=== PATIENT | male | born 1965 | race Caucasian/White ===

== ENCOUNTER → 2021-05-26 09:27 | Outpatient (CLI) | payer MEDICARE, MEDICAID, SELFPAY ==
[2021-05-26 20:34] LABS: COVID19 - ORCAS (NP or Nasal) Negative (Negative)
== END ==
PROVIDERS: PCP Physician Assistant; Visit Provider Physician Assistant
DX: Z20.822 Contact with and (suspected) exposure to COVID-19 (principal)
CPT/HCPCS: C9803; U0003

== ENCOUNTER → 2023-05-10 11:19 | Outpatient (CLI) | payer MEDICARE, MEDICAID, SELFPAY ==
--- NOTE | 2023-05-10 11:24 | DI.MRI.S_ITS ---
PROCEDURE: MR PELVIC PROSTATE PROTOCOL INDICATIONS: Elevated and rising PSA TECHNIQUE: Coronal HASTE, axial T1 FSE with fat saturation, 3-plane nonbreath-hold T2 FSE. After the administration of contrast, dynamic axial, delayed axial and coronal VIBE or 2-D FLASH with fat saturation through the pelvis. Optional diffusion weighted imaging and ADC may be performed. COMPARISON: None. FINDINGS: Image quality: Diffusion weighted and dynamic contrast enhanced images are diagnostic. Prostate: 4.3 x 5.3 x 4.8 cm. Estimated volume is 57 cc. Transitional zone heterogenous nodules are present, either well encapsulated or mostly encapsulated, compatible with PI-RADS 1 or 2 likely BPH nodules. There is diffuse homogeneous low signal on T2 weighted images of the peripheral zone, without mass forming lesion identified. PI-RADS 2. Mild enhancement is also seen throughout the peripheral zone on early images. Genitourinary system: Mildly trabeculated bladder without hydronephrosis, often due to chronic obstruction. Bowel and peritoneum: Colonic diverticula. No bowel obstruction or pathologic ascites. Nodes and vessels: No aneurysmal vessel. No pathologic lymph nodes by size criteria. Soft tissues: Right greater than left inguinal hernias. Right inguinal hernia variably contains a loop of ileum, without obstruction. Bones: No acute or suspicious osseous finding. IMPRESSION: Suspected acute or acute on chronic prostatitis changes, without a mass forming lesion identified in the peripheral zone. BPH changes suspected in the transitional zone. No PI-RADS 3, 4 or 5 finding. Consider PSA surveillance and repeat imaging if persistently elevated. Bowel containing right inguinal hernia. Dictated by: Alex Wolf M.D. on 05/10/2023 at 14:54 Approved by: Alex Wolf M.D. on 05/10/2023 at 15:00
== END ==
PROVIDERS: PCP Family Medicine; Referring Provider Urology; Visit Provider Urology
DX: N32.89 Other specified disorders of bladder (principal); R97.20 Elevated prostate specific antigen [PSA]; K57.90 Diverticulosis of intestine, part unspecified, without perforation or abscess without bleeding; K40.20 Bilateral inguinal hernia, without obstruction or gangrene, not specified as recurrent
CPT/HCPCS: 72197; 99213; A9579

== ENCOUNTER 2023-08-24 09:43 | Day surgery (SDC) | payer MEDICARE, MEDICAID, SELFPAY ==
[2023-08-16 15:20] VITALS: BMI 27.6
[2023-08-24 10:11] VITALS: BP 150/86; PULSE 57; RESP 16; TEMP 36.5; O2SAT 98; BMI 27.8
[2023-08-24] MEDS: LACTATED RINGERS 1,000 ML 42 ML IV (10:20)
--- NOTE | 2023-08-24 10:44 | SUR.OPER ---
Supine on padded OR bed, head on pillow, arms secured on padded arm boards at <90 degrees abduction, legs uncrossed, safety belt at thigh, tape over blanket over lower legs.
--- NOTE | 2023-08-24 10:46 | P.HP_ITS ---
History of Present Illness History of Present Illness Date Patient Seen: 08/24/23 Time Patient Seen: 10:46 Chief complaint: Open [facility] Narrative: Oscar is a 50-year-old man with autism with a right inguinal hernia that he is had for several years. See office note from May for details. FORMERLY [facility], [facility] Medical History (Updated 08/16/23 @ 15:23 by Teetee Denis RN) Autism Asymptomatic microscopic hematuria Right inguinal hernia Rising PSA level Elevated PSA History of Noe's esophagus History of high blood pressure Hx of gastroesophageal reflux (GERD) Surgical History Hx of circumcision Family History Grandmother Cancer Grandfather Hearing impairment Social History marital status: unmarried,single number of children: 0 household members: family Smoking Status: Never smoker alcohol intake: never caffeine: No Type(s) of exercise: other Meds Home Medications and Allergies Home Medications Medication Instructions Recorded Confirmed Type buspirone 15 mg tablet 15 mg PO BID 04/29/23 08/24/23 History [id number] 333 mg-133 tab PO 04/29/23 05/10/23 History mg-8.3 mg tablet cholecalciferol (vitamin D3) 2,000 units PO DAILY 04/29/23 08/24/23 History fluvoxamine 100 mg tablet 100 mg PO BEDTIME 04/29/23 08/24/23 History multivit with min-folic acid PO 04/29/23 05/10/23 History [Centrum Adults] omeprazole 20 mg capsule,delayed 20 mg PO BID 04/29/23 08/24/23 History release propranolol 20 mg tablet 15 mg PO BID 04/29/23 08/24/23 History Allergies Allergy/AdvReac Type Severity Reaction Status Date / Time lactose Allergy Unknown Verified 08/24/23 10:21 Exam Vital Signs (past 8 hours): - 08/24/23 10:11 Temperature 97.7 F Pulse Rate 57 L Respiratory Rate 16 Blood Pressure 150/86 H Pulse Oximetry 98 Oxygen Delivery Method Room Air Oxygen Flow Rate 0 Oxygen Delivery Method Room Air Oxygen Flow Rate 0 Narrative Exam Narrative: Right inguinal hernia Assessment & Plan Assessment and plan (1) Right inguinal hernia: Status: Acute Plan We reviewed the risks and benefits of open right inguinal hernia repair and he would like to proceed.
[2023-08-24] MEDS: CEFAZOLIN 2 GM/100 ML PREMIX 100 ML IV (11:10)
[2023-08-24] MEDS: BUPIVACAINE 0.5% (PF) 30 ML, EPINEPHrine 0.15 MG INJ (11:21)
--- NOTE | 2023-08-24 12:29 | P.OP_ITS ---
Operative Date/Time/Diagnoses Date of procedure: 08/24/23 Time of procedure: 12:30 Pre-op diagnosis: Right inguinal hernia Post-op diagnosis: same Procedure & Clinicians Procedure: Open right inguinal hernia repair with mesh Same procedure as scheduled: Yes Surgeon: Marcelo De Los Santos Operative Notes Procedure in detail: Preoperative antibiotic was administered. The patient was brought to the operating room and placed on the table in supine position general anesthesia was induced. The right groin was prepped and draped in the normal fashion and a time-out was performed. Roughly 10 mL of local anesthetic were injected into the skin and subcutaneous adipose tissue over the right groin. A 7 cm incision was made over the right inguinal canal. Dissection was carried down through the subcutaneous adipose tissue. We exposed the external oblique aponeurosis in the direction of the fibers. Additional local was injected deep to the aponeurosis. A 15 blade scalpel was used to cesario the external oblique aponeurosis. Metzenbaum scissors were used to carefully open the aponeurosis in the direction of the fibers taking care not to injure the underlying ilioinguinal nerve which was well seen and protected. We completely exposed the inguinal canal. The cord was dissected free from the inguinal ligament and floor of the inguinal canal and the external oblique aponeurosis was dissected off of the internal oblique taking care not to injure the hypogastric nerve. We encircled the cord with a Davenport drain for retraction. There was a large indirect defect. The sac was dissected off the cord structures and reduced into the abdomen with the assistance of some Trendelenburg and paralysis. We then placed a polypropylene mesh against the floor of the inguinal canal. The mesh was secured with multiple interrupted 3-0 Prolene sutures to the pubic tubercle and shelving edge of the inguinal ligament as well as to the conjoint tendon medially. We overlapped the tails to recreate an internal ring and secured the medial tail to the inguinal ligament with additional sutures. We injected some more local into the fatty tissue in the inguinal canal and cord. Finally, we removed the Ravi drain and closed the external oblique fascia with a running 3-0 Vicryl suture. Skin was closed with interrupted 3-0 Vicryl dermal sutures and a running 4 Monocryl subcuticular stitch. EBL 5 mL The patient was awakened and brought to recovery room. Post-operative Condition: stable Disposition: PACU
[2023-08-24 12:33] VITALS: BP 149/83; PULSE 73; RESP 10; TEMP 36.1; O2SAT 94
[2023-08-24 12:38] VITALS: BP 140/80; PULSE 71; RESP 12; O2SAT 95
[2023-08-24 12:43] VITALS: BP 143/80; PULSE 71; RESP 12; O2SAT 94
[2023-08-24 12:48] VITALS: BP 150/89; PULSE 73; RESP 12; TEMP 36.2; O2SAT 95
[2023-08-24 12:53] VITALS: BP 151/90; PULSE 76; RESP 12; TEMP 36.4; O2SAT 96
== END 2023-08-24 13:20 | disposition home or self-care (01) ==
PROVIDERS: PCP Family Medicine; Referring Provider Surgery; Visit Provider Surgery
PROC: (CPT 49505; principal; 2023-08-24 11:15)
DX: K40.90 Unilateral inguinal hernia, without obstruction or gangrene, not specified as recurrent (principal)
CPT/HCPCS: 49505; J0171; J0330; J0690; J1100; J1885; J2405; J2704; J3010; J3490